=== PATIENT | male | born 1960 | race African-American/Black ===

== ENCOUNTER 2017-02-19 14:06 | Emergency (ER) | payer MEDICAID ==
[~2017-02-19] VITALS: Ht 172.7 cm; Wt 70.0 kg
[2017-02-19 17:45] LABS: EOSINOPHILS % 3.3 % (0.0-5.0); HEMATOCRIT. 41.2 % (42.0-52.0); HEMOGLOBIN. 13.4 g/dL (14.0-18.0); LYMPHOCYTES % 51.5 % (20.0-50.0); MEAN CORPUSCULAR HEMOGLOBIN 26.7 pg (28.0-32.0); MEAN CORPUSCULAR HGB CONC 32.5 g/dL (31.0-37.0); MEAN CORPUSCULAR VOLUME 82.2 fL (80.0-94.0); MEAN PLATELET VOLUME 9.3 fl (7.4-10.4); MONOCYTES % 8.8 % (2.0-8.0); NEUTROPHILS % 35.4 % (40.0-76.0); PLATELET 224 x1000/uL (130-400); RED BLOOD CELL COUNT 5.01 mill/uL (4.7-6.1); RED CELL DISTRIBUTION WIDTH 14.4 % (11.6-14.6); WHITE BLOOD COUNT 5.5 x1000/uL (4.5-11.0)
[2017-02-19 17:49] LABS: CHLORIDE 106 mEq/L (98-107); INDEX HEMOLYSI 1 (1-3); INDEX ICTERIC 1 (1-4); INDEX LIPEMIC 1 (1-3)
[2017-02-19 17:55] LABS: ACETAMINOPHEN < 2 ug/mL (10-30); ANION GAP 11; CALCIUM 8.9 mg/dL (8.5-10.1); CARBON DIOXIDE 29 mEq/L (21-32); ETHANOL BLOOD < 10 mg/dL; UREA NITROGEN BLOOD 20 mg/dL (7-21); eGFR > 60 mL/min (>60)
[2017-02-19 18:36] LABS: *AMPHETAMINES SCREEN URINE NEGATIVE (NEGATIVE); *BARBITURATES SCREEN URINE NEGATIVE (NEGATIVE); *BENZODIAZEPINES SCREEN URINE NEGATIVE (NEGATIVE); *COCAINE SCREEN URINE PRESUMTIVE POSITIVE (NEGATIVE); CANNABINOID URINE SCREEN NEGATIVE (NEGATIVE); ECSTASY MDMA SCREEN URINE NEGATIVE (NEGATIVE); METHADONE URINE SCREEN NEGATIVE (NEGATIVE); OPIATES URINE SCREEN NEGATIVE (NEGATIVE); PHENCYCLIDINE URINE SCREEN PRESUMTIVE POSITIVE (NEGATIVE)
[2017-02-20 06:19] VITALS: BP 137/77
== END 2017-02-20 10:45 | disposition home or self-care (01) ==
LOC: EDBD 14:34 → ER 14:34
DX: R45.851 Suicidal ideations (principal); F20.9 Schizophrenia, unspecified; F31.9 Bipolar disorder, unspecified; E11.9 Type 2 diabetes mellitus without complications; J45.909 Unspecified asthma, uncomplicated; F17.200 Nicotine dependence, unspecified, uncomplicated
CPT/HCPCS: 36415; 80048; 80305; 80307; 80329; 85025; 99284; G0482; Z7610